=== PATIENT | female | born 1995 | race Caucasian/White ===

== ENCOUNTER 2016-11-23 11:51 | Outpatient (CLI) | payer OTHER ==
[~2016-11-23] VITALS: Ht 167.6 cm; Wt 55.8 kg
[2016-11-23 11:59] VITALS: Ht 167.6 cm; Wt 55.8 kg
[2016-11-23 12:01] VITALS: BP 114/76; PULSE 81; RESP 20
[2016-11-23] MEDS ORDERED: PRENAT PO (12:23)
[2016-11-23] MEDS ORDERED: FERR325C PO (12:23)
[2016-11-23] MEDS ORDERED: CALC600T5 PO (12:24)
--- NOTE | 2016-11-23 12:28 | RADRPT ---
PROCEDURE: US OB. CLINICAL INDICATION: Size and dates , post dates TECHNIQUE: Multiple sonographic images of the pelvis and gravid uterus were obtained. The images were reviewed on a PACS workstation. COMPARISON: No prior studies are available for comparison. FINDINGS: There is a single viable intrauterine gestation. Cardiac activity is present with 137 beats per min nikko. There is a vertex presentation. The placenta is left lateral. There is no evidence for an abruption or placenta previa. There is a normal amount of amniotic fluid with an JACQUELIN = 15.0 cm. Measurements were made in order to determine age. The results are as follows: BPD =9.0 cm HC =32.7 cm AC =35.8 cm FL =7.5 cm Estimated gestational age of approximately 38 weeks and 0 days based on ultrasound measurements. Clinical age: 40 weeks and 4 days. The estimated date of delivery is 12/07/16, based on ultrasound measurements. The EFW = 3580 g, 38.5%, based on LMP age. RPTAT: AA IMPRESSION: Single viable intrauterine gestation of approximately 38 weeks and 0 days based on ultrasound measu rements. .Hira Grigsby MD, Date Time Electronically viewed and signed by .Hira Grigsby MD, MD on 11/23/2016 12:27 .S/
--- NOTE | 2016-11-23 12:33 | RADRPT ---
PROCEDURE: US OB biophysical profile. CLINICAL INDICATION: decreased movements, post dates TECHNIQUE: Multiple sonographic images of the pelvis were obtained. The images were reviewed on a PACS workstation. COMPARISON: No prior studies are available for comparison. FINDINGS: There is a single viable intrauterine gestation. Cardiac activity is present with 135 beats per min nikko. There is a vertex presentation. The placenta is left lateral. There is no evidence for an abruption or placenta previa. There is a normal amount of amniotic fluid with an JACQUELIN = 15.0 cm. Biophysical profile: movement 2/2 tone 2/2. breathing 2/2 JACQUELIN 2/2 Total 12/27 RPTAT: AA . IMPRESSION: Normal biophysical profile. . .Hira Grigsby MD, Date Time Electronically viewed and signed by .Hira Grigsby MD, MD on 11/23/2016 12:32 .S/
--- NOTE | 2016-11-23 13:56 | PN ---
Triage Information Date/Time 11/23/2016 Weeks of Gestation 40 weeks and 4 days : 1 Para: 0 Diabetes: none Hypertention: none Additional information 21-year-old with IUP at 40 weeks and 4 days with care with Dr. Tong presented for EFW and NST to triage. Denies any leaking of fluid, vaginal bleeding or decreased movement. No complaint. EFW 3580 g, 38.5% Objective Vital Signs Date Time Temp Pulse Resp B/P Pulse Ox O2 Delivery O2 Flow Rate FiO2 11/23/16 12:01 97.9 81 20 114/76 99 Room Air Heart Rate: 130's Heart Rate Comments Category 1 No contraction the monitor Contractions: None Exam Pelvic exam deferred NST category 1 BPP: 8/8 JACQUELIN: 15 Assessment/Plan IUP at 40 weeks and 4 days, postdates testing reassuring DC home Schedule for induction in 2 days Strict labor precaution and kick count discussed BINH MOE MD Nov 23, 2016 13:56
== END 2016-11-23 13:40 | disposition home or self-care (01) ==
LOC: OBT 11:51 → L-D 11:52 → OBT 13:40
PROVIDERS: ATTEND Obstetrics & Gynecology
DX: O36.8130 Decreased fetal movements, third trimester, not applicable or unspecified (principal); Z3A.38 38 weeks gestation of pregnancy
CPT/HCPCS: 76815; 76818; Z7500; G0463

== ENCOUNTER 2016-11-25 06:36 | Inpatient (IN) | payer OTHER ==
[~2016-11-25] VITALS: Ht 165.1 cm; Wt 54.1 kg
[~2016-11-25 06:36] MED LIST: CALC600T5 PO; FERR325C PO; PRENAT PO
[2016-11-25 09:34] VITALS: Ht 165.1 cm; Wt 54.1 kg
[2016-11-25 09:35] VITALS: BP 110/77
[2016-11-25] MEDS: LACTATED RINGER'S 1,000 ML IV SCH ×4 (09:51→23:01)
[2016-11-25] MEDS ORDERED: LIDOCAINE 1% (MPF) 30 ML INJ INJ PRN (10:00)
[2016-11-25] MEDS ORDERED: OXYTOCIN 30 UNITS/LR 500 ML IV PRN (10:00)
[2016-11-25] MEDS ORDERED: CARBOPROST 250 MCG INJ IM PRN (10:00)
[2016-11-25] MEDS ORDERED: IBUPROFEN 600 MG TAB PO PRN (10:00)
[2016-11-25] MEDS ORDERED: MISOPROSTOL 200 MCG TAB PR PRN (10:00)
[2016-11-25] MEDS ORDERED: OXYTOCIN 30 UNITS/LR 500 ML IV SCH ×3 (10:00→23:00)
[2016-11-25] MEDS ORDERED: BUTORPHANOL 2 MG INJ IV PRN ×2 (10:00)
[2016-11-25] MEDS ORDERED: METHYLERGONOVINE 0.2 MG INJ IM PRN (10:00)
[2016-11-25 10:56] LABS: ADD SCAN DIFF NO
[2016-11-25] MEDS ORDERED: DINOPROSTONE 10 MG VAG SUPP VAG ONE (11:00)
[2016-11-25 11:17] LABS: BASOPHILS % 0.2 % (0.0-2.0); EOSINOPHILS % 0.4 % (0.0-7.0); HEMATOCRIT 37.7 % (37.0-47.0); HEMOGLOBIN 12.9 g/dl (12.0-16.0); LYMPHOCYTES % 24.4 % (15.0-51.0); MEAN CORPUSCULAR HEMOGLOBIN 32.5 pg (29.0-33.0); MEAN CORPUSCULAR HGB CONC 34.2 g/dl (32.0-37.0); MEAN PLATELET VOLUME 11.9 fl (7.4-10.4); MONOCYTE # 0.6 10^3/ul (0.3-0.9); MONOCYTES % 7.7 % (0.0-11.0); NEUTROPHIL # 5.4 10^3/ul (1.6-7.5); NEUTROPHILS % 66.3 % (39.0-77.0); PLATELET COUNT 159 10^3/UL (140-415); RED BLOOD COUNT 3.97 10^6/ul (4.20-5.40); RED CELL DISTRIBUTION WIDTH 12.9 % (11.5-14.5); WHITE BLOOD COUNT 8.2 10^3/ul (4.8-10.8)
[2016-11-25 11:35] LABS: INR 0.92; PARTIAL THROMBOPLASTIN TIME 28.3 Sec (25.0-35.0); PROTIME 12.4 Sec (12.2-14.2)
[2016-11-25] MEDS ORDERED: LACTATED RINGER'S 1,000 ML IV PRN (20:00)
[2016-11-25] MEDS ORDERED: DIPHENHYDRAMINE 50 MG INJ IV PRN (23:00)
[2016-11-25] MEDS ORDERED: NALOXONE (0.4 MG/ML) INJ IV PRN (23:00)
[2016-11-25] MEDS ORDERED: FENTAnyl 2MCG/ML-ROPIV 0.2% 100 ML BAG EPI SCH (23:00)
[2016-11-25] MEDS ORDERED: ONDANSETRON 4 MG INJ IV PRN (23:00)
[2016-11-26] MEDS ORDERED: MINERAL OIL LIGHT 10 ML VIAL TOP ONE (06:40)
[2016-11-26] MEDS ORDERED: LACTATED RINGER'S 1,000 ML IV* SCH (07:25)
--- NOTE | 2016-11-26 07:25 | LDN ---
Date/Time of Note Date/Time of Note DATE: 11/26/16 TIME: 07:23 Delivery Summary 11/26/2016 Weeks of Gestation 40 + weeks Placenta Delivered: Spontaneously Meconium: none Episiotomy: No Perineal laceration: 2 Laceration repair: second degree perineal and vaginal lacerations and first degree supraurethral lacerations Anesthesia type: Epidural Sponge & Needle done & correct: Yes All needle counts correct: Yes Any foreign bodies felt in the: No Problems: Delivery Information Sex Infant Sex: male Apgars 1 Minute: 9 5 Minute: 9 Suctioning Nose & mouth suctioned at anamaria: Yes Delee suction performed: Yes Umbilical Cord Umbilical cord with: 3 Vessels Cord presentations: no nuchal cord Cord Blood was obtained: Yes Mother & Baby Disposition Disposition Weight 3515 grams. Second degree perineal lacerations and first degree supraurethral laceration. Urethra cathaterized and was intact, no extension Placenta intact. BINH MOE MD Nov 26, 2016 07:25
[2016-11-26] MEDS ORDERED: CARBOPROST 250 MCG INJ IM PRN (07:30)
[2016-11-26] MEDS ORDERED: ACETAMINOPHEN 325 MG TAB PO PRN (07:30)
[2016-11-26] MEDS ORDERED: ZOLPIDEM 5 MG TAB PO PRN (07:30)
[2016-11-26] MEDS ORDERED: DIPHENHYDRAMINE 25 MG CAP PO PRN (07:30)
[2016-11-26] MEDS ORDERED: METHYLERGONOVINE 0.2 MG INJ IM PRN (07:30)
[2016-11-26] MEDS ORDERED: MISOPROSTOL 200 MCG TAB PR PRN (07:30)
[2016-11-26] MEDS ORDERED: OXYTOCIN 30 UNITS/LR 500 ML IV PRN (07:30)
[2016-11-26] MEDS ORDERED: ONDANSETRON 4 MG INJ IV PRN (07:30)
[2016-11-26] MEDS ORDERED: LANOLIN 7 GM TUBE TOP PRN (07:30)
[2016-11-26 09:00] VITALS: BP 118/79; PULSE 68; RESP 18
[2016-11-26] MEDS: SENNA/DOCUSATE NA (8.6MG/50MG) TAB PO SCH ×2 (09:00→21:16)
[2016-11-26] MEDS: PRENATAL VITAMIN PO SCH (09:00)
[2016-11-26 11:04] LABS: HEMATOCRIT 37.8 % (37.0-47.0); HEMOGLOBIN 12.8 g/dl (12.0-16.0)
[2016-11-26 11:57] VITALS: BP 93/66; PULSE 105; RESP 18
[2016-11-26] MEDS: IBUPROFEN 600 MG TAB PO SCH ×3 (11:57→23:11)
[2016-11-26 15:29] VITALS: BP 109/70; PULSE 76; RESP 18
[2016-11-26] MEDS ORDERED: WITCH HAZEL/GLYCERIN PAD PR PRN (17:00)
[2016-11-26] MEDS ORDERED: BENZOCAINE 20% 56 ML SPRAY TOP PRN (17:00)
[2016-11-26] MEDS ORDERED: OXYCODONE/ASPIRIN (4.88/325) TAB PO PRN (17:00)
[2016-11-26 20:30] VITALS: BP 112/72; PULSE 69; RESP 18
[2016-11-26 23:13] VITALS: BP 90/61; PULSE 79; RESP 18
[2016-11-27 04:00] VITALS: BP 108/68; PULSE 62
[2016-11-27] MEDS: IBUPROFEN 600 MG TAB PO SCH ×3 (06:07→17:30)
[2016-11-27 07:38] LABS: ADD SCAN DIFF NO
[2016-11-27 07:48] LABS: BASOPHILS % 0.3 % (0.0-2.0); EOSINOPHILS # 0.1 10^3/ul (0.0-0.5); EOSINOPHILS % 1.1 % (0.0-7.0); HEMOGLOBIN 12.3 g/dl (12.0-16.0); LYMPHOCYTES # 2.4 10^3/ul (0.8-2.9); LYMPHOCYTES % 21.7 % (15.0-51.0); MEAN CORPUSCULAR HEMOGLOBIN 32.5 pg (29.0-33.0); MEAN CORPUSCULAR HGB CONC 33.2 g/dl (32.0-37.0); MEAN CORPUSCULAR VOLUME 97.6 fl (82.0-101.0); MEAN PLATELET VOLUME 11.3 fl (7.4-10.4); MONOCYTE # 0.8 10^3/ul (0.3-0.9); MONOCYTES % 7.2 % (0.0-11.0); NEUTROPHIL # 7.5 10^3/ul (1.6-7.5); NEUTROPHILS % 69.1 % (39.0-77.0); PLATELET COUNT 164 10^3/UL (140-415); RED BLOOD COUNT 3.79 10^6/ul (4.20-5.40); RED CELL DISTRIBUTION WIDTH 13.2 % (11.5-14.5); WHITE BLOOD COUNT 10.9 10^3/ul (4.8-10.8)
[2016-11-27 08:00] VITALS: BP 89/51; PULSE 81; RESP 18
[2016-11-27] MEDS: SENNA/DOCUSATE NA (8.6MG/50MG) TAB PO SCH ×2 (09:53→21:49)
[2016-11-27] MEDS: PRENATAL VITAMIN PO SCH (09:53)
--- NOTE | 2016-11-27 14:03 | QN ---
Documentation Comment POD #1 s/p Feels well and without a problem. T=97.7 BP 89/51 Fundus firm. Lochia minimal. Ext NT, no edema. WBC 10.9 Hgb 12.3 Plts 164k P: Cont. care and plan d/c tomorrow. SKYLAR PORTILLO MD Nov 27, 2016 14:03
[2016-11-27 15:15] VITALS: BP 89/54; PULSE 71; RESP 18
[2016-11-27 20:15] VITALS: BP 94/65; PULSE 86; RESP 17
[2016-11-28] MEDS: IBUPROFEN 600 MG TAB PO SCH ×3 (00:14→12:28)
[2016-11-28 08:00] VITALS: BP 104/63; PULSE 60; RESP 18
[2016-11-28] MEDS ORDERED: VARICELLA VACCINE LIVE/PF 1,350 UNIT/0.5 ML ML SC* ONE (09:00)
[2016-11-28] MEDS ORDERED: MEASLES,MUMPS,RUBELLA VACCINE INJ SC* ONE (09:00)
[2016-11-28] MEDS ORDERED: DIPHTH/TET/ACEL PERTUSS (ADULT) 0.5 ML VIAL IM* ONE (09:00)
--- NOTE | 2016-11-28 09:52 | PD.PPDC ---
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
--- NOTE | 2016-11-28 09:55 | DS ---
Date/Time of Note Date/Time of Note DATE: 11/28/16 TIME: 09:53 Discharge Summary Admission/Discharge Info Admit Date/Time Nov 25, 2016 at 09:13 Discharge Date/Time November 28, 2016 at 950 Discharge Diagnosis Day 2 post normal vaginal delivery Patient Condition: Good Procedures Normal vaginal delivery Hx of Present Illness Term admitted in labor Hospital Course Satisfactory uneventful Home Meds Reported Medications Calcium Carbonate (CALCIUM) 600 Mg Tablet, 600 MG PO, TAB 11/23/16 Ferrous Sulfate (Iron) 325 Mg Capsule.er, 325 MG PO, CAP 11/23/16 Multivit/Min/Fol Ac/Iron/Pren* ( S*) 1 Tab Tab, 1 TAB PO DAILY, TAB 11/23/16 Follow-up Plan instructions given a prescription for multivitamin provided recommended to make appointment in 2 weeks Primary Care Provider [facility] Time spent on discharge: < 30 minutes VIK RAINES MD Nov 28, 2016 09:54
[2016-11-28] MEDS: PRENATAL VITAMIN PO SCH (12:28)
[2016-11-28] MEDS: SENNA/DOCUSATE NA (8.6MG/50MG) TAB PO SCH (12:28)
== END 2016-11-28 13:40 | disposition home health service (06) | DRG 775 ==
LOC: L-D 09:13 → PP1 11-26 08:54
PROVIDERS: ADMIT Obstetrics & Gynecology; ATTEND Obstetrics & Gynecology
PROC: 10E0XZZ Delivery of Products of Conception, External Approach (ICD-10-PCS; principal; 2016-11-26)
PROC: 0KQM0ZZ Repair Perineum Muscle, Open Approach (ICD-10-PCS; 2016-11-26)
DX: O48.0 Post-term pregnancy (principal); O71.5 Other obstetric injury to pelvic organs; Z3A.40 40 weeks gestation of pregnancy; O70.1 Second degree perineal laceration during delivery; Z37.0 Single live birth
CPT/HCPCS: 62319; 85014; 85018; 85025; 85610; 85730; 86592; 86900; 86901; 87340; 90715; 90716; J0595; J2590; J3010; J7120